=== PATIENT | female | born 1990 | race Caucasian/White ===

== ENCOUNTER 2024-11-08 08:51 | Outpatient (CLI) | payer BC ==
[2024-11-08 09:32] LABS: #Basophils 0.03 10x3/uL (0.0-0.2); #Eosinophils 0.29 10x3/uL (0.0-0.5); #Monocytes 0.35 10x3/uL (0.0-1.1); %Basophils 0.4 % (0.0-2.0); %Eosinophils 4.1 % (0.0-6.0); %Lymphocytes 32.2 % (18.0-47.0); Hematocrit 40.1 % (34.9-44.5); Mean Corpuscular HGB CONC 34.9 g/dL (32.0-36.0); Mean Corpuscular Hemoglobin 31.2 pg (27.0-33.0); Mean Corpuscular Volume 89.3 fL (81.6-98.3); Mean Platelet Volume 9.7 fL (7.4-10.4); Platelet Count 276 10x3/uL (150-450); RBC Distribution Width 12.1 % (11.5-14.5); Red Blood Cell (RBC) Count 4.49 10x6/uL (3.90-5.03); White Blood Cell (WBC) Count 7.06 10x3/uL (3.5-10.5)
[2024-11-08 09:48] LABS: BHCG - Serum Negative (NEGATIVE); Pregs Control Background? CLEAR/WHITE (CLR/WHITE); Pregs Control Bar Appear? YES (CONTROL BAR)
[2024-11-08 09:54] LABS: Anion Gap 10 mmol/L (10-20); BUN (Urea Nitrogen) 14 mg/dL (7.0-18.7); Calc. Creatinine Clearance 0 mL/min (70-130); Calcium 9.9 mg/dL (7.8-10.44); Carbon Dioxide 27 mmol/L (22-29); Chloride 105 mmol/L (98-107); Estimated GFR 115; Glucose 103 mg/dL (70-105); Sodium 138 mmol/L (136-145)
== END 2024-11-08 08:52 | disposition home or self-care (01) ==
LOC: CSHLAB 08:51
PROVIDERS: ATTEND Specialist
DX: Z01.812 Encounter for preprocedural laboratory examination (principal); K42.9 Umbilical hernia without obstruction or gangrene
CPT/HCPCS: 80048; 84703; 85025

== ENCOUNTER 2024-11-11 06:31 | Day surgery (SDC) | payer BC ==
[2024-11-11] MEDS ORDERED: Acetaminophen 500 MG TAB ONE (07:19)
[2024-11-11] MEDS ORDERED: Ketorolac Tromethamine 30 MG (1 mL) VIAL ONE ×2 (07:19→09:13)
[2024-11-11] MEDS ORDERED: Bupivacaine/Epinephrine 0.25% 30 ML VIAL ONE (09:11)
[2024-11-11] MEDS ORDERED: CEFAZOLIN 2 GM VIAL ONE (09:11)
[2024-11-11] MEDS ORDERED: PROPOFOL 20 ML ONE (09:11)
[2024-11-11] MEDS ORDERED: fentaNYL 50 mcg/mL 1 mL Vial ONE (09:11)
[2024-11-11] MEDS ORDERED: Ondansetron PF 4 MG/2 ML Vial ONE (09:12)
[2024-11-11] MEDS ORDERED: Dexamethasone 4 mg/ml Vial ONE (09:12)
[2024-11-11] MEDS ORDERED: Rocuronium Bromide 10 MG/ML (10ML VIAL) ONE (09:12)
[2024-11-11] MEDS ORDERED: SUGAMMADEX SODIUM 200 MG/2 ML VIAL ONE (09:12)
[2024-11-11] MEDS ORDERED: Lidocaine 2% PF 5 ML VIAL ONE (09:13)
[2024-11-11] MEDS ORDERED: Lidocaine 4% PF 5 ML AMP ONE (09:13)
[2024-11-11] MEDS ORDERED: Midazolam HCl 2 mg/2 ml Vial ONE (09:29)
== END 2024-11-11 11:50 | disposition home or self-care (01) ==
LOC: CSHSDC 06:31
PROVIDERS: ATTEND Specialist
PROC: 0WUF4JZ Supplement Abdominal Wall with Synthetic Substitute, Percutaneous Endoscopic Approach (ICD-10-PCS; principal; 2024-11-11)
DX: K42.9 Umbilical hernia without obstruction or gangrene (principal); F32.A Depression, unspecified; Z79.899 Other long term (current) drug therapy; Z90.89 Acquired absence of other organs; Z98.890 Other specified postprocedural states; Z91.018 Allergy to other foods
CPT/HCPCS: A6258; J1100; J1885; J2250; J2405; J2704; J3010